=== PATIENT | female | born 2000 | race Two or more races ===

== ENCOUNTER 2025-03-13 18:32 | Emergency (ER) | payer MEDICAID ==
[~2025-03-13] VITALS: Ht 170.2 cm; Wt 64.5 kg
[2025-03-13 18:57] VITALS: TEMP 97.7
[2025-03-13] MEDS ORDERED: PHEN95TA23 PO (19:04)
[2025-03-13] MEDS ORDERED: FERR325T27 PO (19:04)
[2025-03-13 19:36] LABS: APPEARANCE,URINE CLEAR (CLEAR); GLUCOSE, URINE (UA) NEGATIVE (NEGATIVE); LEUKOCYTE ESTERASE ,URINE LARGE (NEGATIVE); OCCULT BLOOD,URINE LARGE (NEGATIVE); SPECIFIC GRAVITIY, URINE 1.006 (1.003-1.030)
[2025-03-13 19:40] LABS: HCG,QUAL URINE NEGATIVE (NEGATIVE)
[2025-03-13 19:45] VITALS: BP 128/68; PULSE 79; RESP 18; O2SAT 98
[2025-03-13 19:51] LABS: NITRATE,URINE NEGATIVE (NEGATIVE)
[2025-03-13 19:52] LABS: SQUAMOUS EPITHELIAL CELL,UR Few /LPF (None Seen)
[2025-03-13] MEDS: CEPHALEXIN MONOHYDRATE 500 MG CAPSULE PO ONE (19:54)
[2025-03-13] MEDS: PHENAZOPYRIDINE HCL 100 MG TABLET PO ONE (19:55)
[2025-03-13] MEDS ORDERED: CEPH-558 PO (19:58)
[2025-03-13] MEDS ORDERED: PHEN-674 PO (19:58)
== END 2025-03-13 20:10 | disposition home or self-care (01) ==
LOC: EMS 18:32
DX: N39.0 Urinary tract infection, site not specified (principal); D50.9 Iron deficiency anemia, unspecified; F12.90 Cannabis use, unspecified, uncomplicated; F17.210 Nicotine dependence, cigarettes, uncomplicated; J45.909 Unspecified asthma, uncomplicated; Z90.89 Acquired absence of other organs; Z98.51 Tubal ligation status; Z79.899 Other long term (current) drug therapy
CPT/HCPCS: 81001; 84703; 87086; 99283